=== PATIENT | female | born 1985 | race Caucasian/White ===

== ENCOUNTER 2024-10-31 16:21 | Inpatient (IN) | payer OTHER ==
[~2024-10-31] VITALS: Ht 167.6 cm; Wt 66.8 kg
[2024-10-31] MEDS ORDERED: BISACODYL 10 MG RECTAL RECTAL SUPPOSITORY PR PRN (19:15)
[2024-10-31 19:17] LABS: BASOPHILS % (AUTO) 0.4 % (0.0-2.0); EOSINOPHILS % (AUTO) 0.2 % (1.0-6.0); HEMOGLOBIN 13.6 g/dL (12.0-16.0); LYMPHOCYTES # (AUTO) 1.8 K/uL (1.0-4.8); MEAN CORPUSCULAR HEMOGLOBIN 28.5 pg (26.0-34.0); MEAN CORPUSCULAR VOLUME 84 fL (80-100); MONOCYTES # (AUTO) 0.3 K/uL (0.1-1.0); MONOCYTES % (AUTO) 4.6 % (2.0-9.0); NEUTROPHILS # (AUTO) 4.6 K/uL (1.8-7.7); NEUTROPHILS % (AUTO) 67.8 % (40.0-70.0); PLATELET COUNT (AUTO) 279 K/uL (150-450); RED BLOOD CELL COUNT(AUTO) 4.76 MIL/uL (4.00-5.20); RED CELL DISTRIBUTION WIDTH 12.8 % (11.5-14.5); WHITE BLOOD COUNT (AUTO) 6.7 K/uL (4.5-11.0)
[2024-10-31 19:27] LABS: ANION GAP 5 mmol/L (8-16); CALCIUM, TOTAL 8.7 mg/dL (8.8-10.5); CARBON DIOXIDE 27 mmol/L (22-29); CHLORIDE 104 mmol/L (98-107); CREATININE 0.86 mg/dL (0.60-1.30); GLOMERULAR FILTR. RATE CALC > 60 mL/min (>60); GLUCOSE,RANDOM 95 mg/dL (70-110); POTASSIUM 4.6 mmol/L (3.5-5.1); SODIUM SERUM 136 mmol/L (136-145); UREA NITROGEN, BLOOD 14 mg/dL (7-18)
[2024-10-31] MEDS: SODIUM CHLORIDE 0.9% 1,000 ML IV ONE (20:12)
[2024-10-31] MEDS: PANTOPRAZOLE SODIUM 40 MG/VIAL IVP SCH (20:13)
[2024-10-31] MEDS: DOCUSATE SODIUM 100 MG CAPSULE PO SCH (20:13)
[2024-10-31] MEDS: POLYETHYLENE GLYCOL 3350 17 GM PACKET PO ONE (20:43)
[2024-11-01 00:28] VITALS: BP 117/92; PULSE 66; RESP 18; TEMP 97.5; O2SAT 100
[2024-11-01] MEDS: NICOTINE 21 MG/24 HOUR PATCH TD PRN (00:29)
[2024-11-01] MEDS: MAGNESIUM HYDROXIDE SUSPENSION 30 ML UDCUP PO PRN (00:29)
[2024-11-01 05:32] VITALS: BP 118/57; PULSE 72; RESP 17; TEMP 98.2; O2SAT 99
[2024-11-01 07:29] LABS: BASOPHILS % (AUTO) 0.6 % (0.0-2.0); EOSINOPHILS % (AUTO) 0.9 % (1.0-6.0); HEMATOCRIT 41.2 % (36-46); HEMOGLOBIN 14.1 g/dL (12.0-16.0); LYMPHOCYTES # (AUTO) 2.9 K/uL (1.0-4.8); LYMPHOCYTES % (AUTO) 42.6 % (22.0-44.0); MEAN CORPUSCULAR HGB CONC 34.1 G/dL (31.0-37.0); MEAN CORPUSCULAR VOLUME 85 fL (80-100); MONOCYTES # (AUTO) 0.5 K/uL (0.1-1.0); MONOCYTES % (AUTO) 6.8 % (2.0-9.0); NEUTROPHILS # (AUTO) 3.4 K/uL (1.8-7.7); NEUTROPHILS % (AUTO) 49.1 % (40.0-70.0); RED BLOOD CELL COUNT(AUTO) 4.86 MIL/uL (4.00-5.20); RED CELL DISTRIBUTION WIDTH 12.9 % (11.5-14.5); WHITE BLOOD COUNT (AUTO) 6.9 K/uL (4.5-11.0)
[2024-11-01 07:30] LABS: ANION GAP 4 mmol/L (8-16); CALCIUM, TOTAL 8.4 mg/dL (8.8-10.5); CARBON DIOXIDE 29 mmol/L (22-29); CHLORIDE 103 mmol/L (98-107); CREATININE 0.74 mg/dL (0.60-1.30); GLOMERULAR FILTR. RATE CALC > 60 mL/min (>60); GLUCOSE,RANDOM 76 mg/dL (70-110); POTASSIUM 4.3 mmol/L (3.5-5.1); SODIUM SERUM 136 mmol/L (136-145); UREA NITROGEN, BLOOD 13 mg/dL (7-18)
[2024-11-01 08:04] VITALS: BP 117/71; PULSE 73; RESP 18; TEMP 98; O2SAT 98
[2024-11-01 08:16] LABS: PLATELET COUNT (AUTO) 223 K/uL (150-450)
[2024-11-01 12:00] VITALS: BP 116/68; PULSE 64; RESP 18; TEMP 98; O2SAT 97
[2024-11-01] MEDS: PEG 3350/NA SULF,BICARB,CL/KCL 4000 ML SOLUTION PO ONE (13:26)
[2024-11-01] MEDS: SODIUM CHLORIDE 0.9% 1,000 ML IV ONE (13:27)
[2024-11-01] MEDS: LACTULOSE 20 GM/30 ML SOLUTION UDCUP PO SCH (16:00)
[2024-11-01 20:42] VITALS: BP 125/71; PULSE 81; RESP 17; TEMP 98.2; O2SAT 99
[2024-11-02 00:43] VITALS: BP 126/84; PULSE 89; RESP 20; TEMP 97.9; O2SAT 98
[2024-11-02 03:58] LABS: ALCOHOL, URINE DRUG SCREEN NEGATIVE (NEGATIVE); AMPHET/METH SCREEN,URINE POSITIVE (NEGATIVE); BARBITURATE SCREEN, URINE NEGATIVE (NEGATIVE); BENZODIAZEPINES SCREEN,URINE NEGATIVE (NEGATIVE); CANNABINOID SCREEN,URINE NEGATIVE (NEGATIVE); COCAINE SCREEN,URINE NEGATIVE (NEGATIVE); METHADONE SCREEN, URINE NEGATIVE (NEGATIVE); OPIATE SCREEN,URINE NEGATIVE (NEGATIVE); PHENCYCLIDINE SCREEN,URINE NEGATIVE (NEGATIVE)
[2024-11-02 05:00] VITALS: BP 129/77; PULSE 76; RESP 17; TEMP 97.9; O2SAT 98
[2024-11-02 06:33] LABS: BASOPHILS % (AUTO) 0.3 % (0.0-2.0); EOSINOPHILS % (AUTO) 0.6 % (1.0-6.0); HEMATOCRIT 38.5 % (36-46); HEMOGLOBIN 13.3 g/dL (12.0-16.0); LYMPHOCYTES # (AUTO) 1.8 K/uL (1.0-4.8); LYMPHOCYTES % (AUTO) 25.4 % (22.0-44.0); MEAN CORPUSCULAR HEMOGLOBIN 28.8 pg (26.0-34.0); MEAN CORPUSCULAR HGB CONC 34.4 G/dL (31.0-37.0); MEAN CORPUSCULAR VOLUME 84 fL (80-100); MONOCYTES # (AUTO) 0.5 K/uL (0.1-1.0); MONOCYTES % (AUTO) 6.9 % (2.0-9.0); NEUTROPHILS # (AUTO) 4.6 K/uL (1.8-7.7); NEUTROPHILS % (AUTO) 66.8 % (40.0-70.0); PLATELET COUNT (AUTO) 234 K/uL (150-450); RED BLOOD CELL COUNT(AUTO) 4.61 MIL/uL (4.00-5.20); RED CELL DISTRIBUTION WIDTH 12.4 % (11.5-14.5); WHITE BLOOD COUNT (AUTO) 6.9 K/uL (4.5-11.0)
[2024-11-02 06:34] LABS: ANION GAP 5 mmol/L (8-16); CALCIUM, TOTAL 8.3 mg/dL (8.8-10.5); CARBON DIOXIDE 32 mmol/L (22-29); CHLORIDE 101 mmol/L (98-107); CREATININE 0.68 mg/dL (0.60-1.30); GLOMERULAR FILTR. RATE CALC > 60 mL/min (>60); GLUCOSE,RANDOM 84 mg/dL (70-110); POTASSIUM 3.7 mmol/L (3.5-5.1); SODIUM SERUM 138 mmol/L (136-145); UREA NITROGEN, BLOOD 11 mg/dL (7-18)
[2024-11-02 07:55] VITALS: BP 125/88; PULSE 82; RESP 18; TEMP 98.2; O2SAT 99
[2024-11-02 11:00] VITALS: BP 124/70; PULSE 74; RESP 18; TEMP 98.6; O2SAT 96
[2024-11-02 15:27] VITALS: BP 112/77; PULSE 77; RESP 19; TEMP 98.1; O2SAT 98
[2024-11-02 19:46] VITALS: BP 122/75; PULSE 78; RESP 18; TEMP 98.6; O2SAT 99
[2024-11-03 00:29] VITALS: BP 132/83; PULSE 80; RESP 18; TEMP 98.4; O2SAT 98
[2024-11-03 05:48] VITALS: BP_SYST 106; PULSE 73; RESP 18; TEMP 98.4; O2SAT 98
[2024-11-03 08:11] VITALS: BP 116/67; PULSE 68; RESP 19; TEMP 98.2; O2SAT 96
[2024-11-03 12:00] VITALS: BP 136/73; PULSE 81; RESP 19; TEMP 98.2; O2SAT 97
[2024-11-03] MEDS: ONDANSETRON HCL 4 MG/2 ML VIAL IVP PRN (14:27)
[2024-11-03 19:55] VITALS: BP 113/70; PULSE 77; RESP 18; TEMP 98.2; O2SAT 100
[2024-11-04 04:30] VITALS: BP 111/59; PULSE 78; RESP 18; TEMP 98.2; O2SAT 99
[2024-11-04 09:30] VITALS: BP 119/72; PULSE 90; RESP 20; TEMP 98.2; O2SAT 98
[2024-11-04 20:15] VITALS: BP 111/71; PULSE 87; RESP 18; TEMP 98.2; O2SAT 99
[2024-11-05 04:20] VITALS: BP 107/68; PULSE 77; RESP 18; TEMP 98.1; O2SAT 100
[2024-11-05 08:14] VITALS: BP 119/74; PULSE 84; RESP 18; TEMP 98.3; O2SAT 100
[2024-11-05] MEDS: PEG 3350/NA SULF,BICARB,CL/KCL 4000 ML SOLUTION PO ONE (08:18)
[2024-11-05 15:43] VITALS: BP 106/72; PULSE 75; RESP 18; TEMP 98.2; O2SAT 100
[2024-11-05] MEDS: ACETAMINOPHEN 325 MG TABLET PO PRN (17:55)
[2024-11-05 19:27] VITALS: BP 102/66; PULSE 80; RESP 18; TEMP 98.6; O2SAT 96
[2024-11-05] MEDS: DiphenhydrAMINE HCL 25 MG CAPSULE PO ONE (20:27)
[2024-11-05] MEDS: ZOLPIDEM TARTRATE 5 MG TABLET PO PRN (22:34)
[2024-11-06 05:01] VITALS: BP 119/79; PULSE 81; RESP 18; TEMP 98.1; O2SAT 99
[2024-11-06 08:00] VITALS: BP 114/89; PULSE 90; RESP 18; TEMP 97.9; O2SAT 100
[2024-11-06] MEDS ORDERED: SODIUM CHLORIDE 0.9% 1,000 ML ONE (10:04)
[2024-11-06] MEDS: SODIUM CHLORIDE 0.9% 1,000 ML IV ONE (11:00)
[2024-11-06 13:59] LABS: ANION GAP 9 mmol/L (8-16); CALCIUM, TOTAL 9.1 mg/dL (8.8-10.5); CARBON DIOXIDE 24 mmol/L (22-29); CHLORIDE 103 mmol/L (98-107); CREATININE 0.66 mg/dL (0.60-1.30); GLOMERULAR FILTR. RATE CALC > 60 mL/min (>60); GLUCOSE,RANDOM 118 mg/dL (70-110); POTASSIUM 3.9 mmol/L (3.5-5.1); SODIUM SERUM 136 mmol/L (136-145); UREA NITROGEN, BLOOD 8 mg/dL (7-18)
[2024-11-06] MEDS ORDERED: MAGN-169 PO (15:17)
[2024-11-06] MEDS ORDERED: ACET650S24 PR (15:17)
[2024-11-06 20:58] VITALS: BP 105/66; PULSE 88; RESP 18; TEMP 98.2; O2SAT 100
[2024-11-07 05:30] VITALS: BP 109/68; PULSE 85; RESP 18; TEMP 97.9; O2SAT 100
[2024-11-07] MEDS ORDERED: ACET-2247 PO (12:21)
[2024-11-08] MEDS ORDERED: FAMO20 PO (10:03)
[2024-11-08] MEDS ORDERED: NICO-803 TD (10:03)
[2024-11-08] MEDS ORDERED: LOPE-232 PO (10:04)
== END 2024-11-07 04:00 | DRG 395 ==
LOC: EMS 16:21 → EDSEX 16:21 → EDH 19:05 → 6S 21:37 → 5S 21:54 → 6S 11-03 13:41
PROVIDERS: ADMIT Internal Medicine; ATTEND Internal Medicine
PROC: 0DJD8ZZ Inspection of Lower Intestinal Tract, Via Natural or Artificial Opening Endoscopic (ICD-10-PCS; principal; 2024-11-06 12:00)
DX: T18.4XXA Foreign body in colon, initial encounter (principal); K59.00 Constipation, unspecified; F17.210 Nicotine dependence, cigarettes, uncomplicated; Z88.5 Allergy status to narcotic agent; Z79.899 Other long term (current) drug therapy; W44.8XXA Other foreign body entering into or through a natural orifice, initial encounter; Y93.89 Activity, other specified; Y92.89 Other specified places as the place of occurrence of the external cause; Y99.8 Other external cause status
CPT/HCPCS: 74018; 74019; 74176; 80048; 80307; 84703; 85025; 99285; J2405; J2470; J7030; 36415-L1; 36415-TC

== ENCOUNTER 2024-11-07 10:22 | Inpatient (IN) | payer OTHER ==
[~2024-11-07] VITALS: Ht 175.3 cm; Wt 64.0 kg
[~2024-11-07 10:22] MED LIST: ACET650S24 PR; MAGN-169 PO
[2024-11-07] MEDS: HydrOXYzine PAMOATE 50 MG CAPSULE PO ONE (11:16)
[2024-11-07 11:24] LABS: BASOPHILS % (AUTO) 0.6 % (0.0-2.0); EOSINOPHILS % (AUTO) 0.2 % (1.0-6.0); HEMATOCRIT 48.7 % (36-46); HEMOGLOBIN 16.6 g/dL (12.0-16.0); LYMPHOCYTES # (AUTO) 1.7 K/uL (1.0-4.8); LYMPHOCYTES % (AUTO) 19.8 % (22.0-44.0); MEAN CORPUSCULAR HEMOGLOBIN 28.1 pg (26.0-34.0); MEAN CORPUSCULAR VOLUME 83 fL (80-100); MONOCYTES # (AUTO) 0.5 K/uL (0.1-1.0); MONOCYTES % (AUTO) 6.1 % (2.0-9.0); NEUTROPHILS # (AUTO) 6.2 K/uL (1.8-7.7); NEUTROPHILS % (AUTO) 73.3 % (40.0-70.0); PLATELET COUNT (AUTO) 374 K/uL (150-450); RED BLOOD CELL COUNT(AUTO) 5.89 MIL/uL (4.00-5.20); RED CELL DISTRIBUTION WIDTH 12.6 % (11.5-14.5); WHITE BLOOD COUNT (AUTO) 8.4 K/uL (4.5-11.0)
[2024-11-07 11:57] LABS: ALCOHOL, BLOOD (SERUM) < 3 mg/dL (0-10)
[2024-11-07 11:58] LABS: ANION GAP 9 mmol/L (8-16); CALCIUM, TOTAL 9.7 mg/dL (8.8-10.5); CARBON DIOXIDE 25 mmol/L (22-29); CHLORIDE 101 mmol/L (98-107); CREATININE 0.94 mg/dL (0.60-1.30); GLOMERULAR FILTR. RATE CALC > 60 mL/min (>60); GLUCOSE,RANDOM 115 mg/dL (70-110); POTASSIUM 3.3 mmol/L (3.5-5.1); SODIUM SERUM 135 mmol/L (136-145); UREA NITROGEN, BLOOD 11 mg/dL (7-18)
[2024-11-07 12:03] LABS: TROPONIN I-HIGH SENSITIVITY 4 ng/L (<51)
[2024-11-07] MEDS ORDERED: ONDANSETRON HCL 4 MG/2 ML VIAL IVP PRN (12:15)
[2024-11-07] MEDS ORDERED: MAGNESIUM HYDROXIDE SUSPENSION 30 ML UDCUP PO PRN (12:15)
[2024-11-07] MEDS ORDERED: POTASSIUM CHL 10 MEQ/WATER 50 ML IV PRN (12:15)
[2024-11-07] MEDS ORDERED: ACETAMINOPHEN 325 MG TABLET PO PRN (12:15)
[2024-11-07] MEDS ORDERED: ACET-2247 PO (12:21)
[2024-11-07 13:08] LABS: ALANINE AMINOTRANSFERASE 28 U/L (12-78); ALBUMIN 4.3 g/dL (3.4-5.0); ALKALINE PHOSPHATASE 90 U/L (46-116); ASPARTATE AMINOTRANSFERASE 18 U/L (15-37); BILIRUBIN,TOTAL 0.4 mg/dL (0.1-1.0); CREATINE KINASE, TOTAL ONLY 80 U/L (26-192); HCG,QUANTITATIVE < 1 mIU/mL (0-6); TOTAL PROTEIN, SERUM 8.6 g/dL (6.4-8.2)
[2024-11-07] MEDS: SODIUM CHLORIDE 0.9% 1,000 ML IV ONE (13:08)
[2024-11-07 13:16] LABS: ALCOHOL, URINE DRUG SCREEN NEGATIVE (NEGATIVE); AMPHET/METH SCREEN,URINE NEGATIVE (NEGATIVE); BARBITURATE SCREEN, URINE NEGATIVE (NEGATIVE); BENZODIAZEPINES SCREEN,URINE NEGATIVE (NEGATIVE); CANNABINOID SCREEN,URINE NEGATIVE (NEGATIVE); COCAINE SCREEN,URINE NEGATIVE (NEGATIVE); METHADONE SCREEN, URINE NEGATIVE (NEGATIVE); OPIATE SCREEN,URINE NEGATIVE (NEGATIVE); PHENCYCLIDINE SCREEN,URINE NEGATIVE (NEGATIVE)
[2024-11-07] MEDS: POTASSIUM CHLORIDE 20 MEQ ER TABLET PO PRN (16:31)
[2024-11-07 18:00] VITALS: BP 110/72; PULSE 75; RESP 18; TEMP 97.8; O2SAT 100
[2024-11-07 18:31] LABS: APPEARANCE,URINE CLEAR (CLEAR); BILIRUBIN,URINE NEGATIVE (NEGATIVE); COLOR,URINE YELLOW (YELLOW); GLUCOSE, URINE (UA) TRACE mg/dL (NEGATIVE); LEUKOCYTE ESTERASE ,URINE TRACE (NEGATIVE); NITRATE,URINE NEGATIVE (NEGATIVE); OCCULT BLOOD,URINE TRACE (NEGATIVE); PROTEIN,URINE 30-70 mg/dL (NEGATIVE); SPECIFIC GRAVITIY, URINE 1.033 (1.003-1.030); UROBILINOGEN,URINE <=1.0 mg/dL (<=1.0)
[2024-11-07 18:46] LABS: BACTERIA,URINE Few /HPF (None Seen); SQUAMOUS EPITHELIAL CELL,UR Few /LPF (None Seen)
[2024-11-07] MEDS: LOPERAMIDE HCL 2 MG CAPSULE PO ONE (19:48)
[2024-11-07 19:52] VITALS: BP 117/76; PULSE 74; RESP 17; TEMP 97.9; O2SAT 100
[2024-11-07] MEDS: ZOLPIDEM TARTRATE 5 MG TABLET PO PRN (21:22)
[2024-11-07] MEDS: DiphenhydrAMINE HCL 25 MG CAPSULE PO PRN (22:35)
[2024-11-08 04:47] VITALS: BP 110/71; PULSE 76; RESP 17; TEMP 98.4; O2SAT 100
[2024-11-08] MEDS: NICOTINE 21 MG/24 HOUR PATCH TD SCH (08:26)
[2024-11-08] MEDS: FAMOTIDINE 20 MG TABLET PO SCH (08:27)
[2024-11-08 08:33] VITALS: BP 112/79; PULSE 70; RESP 20; TEMP 97.9; O2SAT 98
[2024-11-08] MEDS ORDERED: NICO-803 TD (10:03)
[2024-11-08] MEDS ORDERED: FAMO20 PO (10:03)
[2024-11-08] MEDS ORDERED: LOPE-232 PO (10:04)
[2024-11-08] MEDS: LOPERAMIDE HCL 2 MG CAPSULE PO PRN (18:58)
[2024-11-08 21:32] VITALS: BP 103/69; PULSE 81; RESP 17; TEMP 97.8; O2SAT 100
== END 2024-11-09 08:11 | DRG 641 ==
LOC: EMS 10:24 → EDH 12:13 → 6S 16:57
PROVIDERS: ADMIT Internal Medicine; ATTEND Internal Medicine
DX: E87.6 Hypokalemia (principal); F15.13 Other stimulant abuse with withdrawal; F11.13 Opioid abuse with withdrawal; F17.210 Nicotine dependence, cigarettes, uncomplicated; F41.9 Anxiety disorder, unspecified; Z88.5 Allergy status to narcotic agent; Z79.899 Other long term (current) drug therapy
CPT/HCPCS: 71045; 80048; 80076; 80307; 81001; 82550; 84132; 84484; 84702; 85025; 93005; 99285; G0480; 36415-L1; 36415-TC

== ENCOUNTER 2024-11-12 17:19 | Inpatient (IN) | payer OTHER ==
[~2024-11-12] VITALS: Ht 175.3 cm; Wt 66.2 kg
[~2024-11-12 17:19] MED LIST changes: +ACET-2247 PO; -ACET650S24 PR; +FAMO20 PO; +LOPE-232 PO; +NICO-803 TD
[2024-11-12 20:42] LABS: BASOPHILS % (AUTO) 0.4 % (0.0-2.0); EOSINOPHILS % (AUTO) 0.5 % (1.0-6.0); HEMATOCRIT 39.8 % (36-46); HEMOGLOBIN 14.1 g/dL (12.0-16.0); LYMPHOCYTES # (AUTO) 3.2 K/uL (1.0-4.8); LYMPHOCYTES % (AUTO) 33.8 % (22.0-44.0); MEAN CORPUSCULAR HEMOGLOBIN 29.1 pg (26.0-34.0); MEAN CORPUSCULAR HGB CONC 35.5 G/dL (31.0-37.0); MEAN CORPUSCULAR VOLUME 82 fL (80-100); MONOCYTES # (AUTO) 0.6 K/uL (0.1-1.0); MONOCYTES % (AUTO) 6.3 % (2.0-9.0); NEUTROPHILS # (AUTO) 5.5 K/uL (1.8-7.7); PLATELET COUNT (AUTO) 392 K/uL (150-450); RED BLOOD CELL COUNT(AUTO) 4.84 MIL/uL (4.00-5.20); RED CELL DISTRIBUTION WIDTH 12.4 % (11.5-14.5); WHITE BLOOD COUNT (AUTO) 9.3 K/uL (4.5-11.0)
[2024-11-12 20:48] LABS: ANION GAP 8 mmol/L (8-16); CALCIUM, TOTAL 9.2 mg/dL (8.8-10.5); CARBON DIOXIDE 26 mmol/L (22-29); CHLORIDE 105 mmol/L (98-107); CREATININE 0.74 mg/dL (0.60-1.30); GLOMERULAR FILTR. RATE CALC > 60 mL/min (>60); GLUCOSE,RANDOM 111 mg/dL (70-110); POTASSIUM 3.8 mmol/L (3.5-5.1); SODIUM SERUM 139 mmol/L (136-145); UREA NITROGEN, BLOOD 13 mg/dL (7-18)
[2024-11-12] MEDS ORDERED: ONDANSETRON HCL 4 MG/2 ML VIAL IVP PRN (21:00)
[2024-11-12] MEDS ORDERED: ACETAMINOPHEN 325 MG TABLET PO PRN (21:00)
[2024-11-12] MEDS ORDERED: KETOROLAC TROMETHAMINE 15 MG/ML VIAL IVP PRN (21:00)
[2024-11-12 21:37] VITALS: BP 107/68; PULSE 89; RESP 20; TEMP 98.2; O2SAT 100
[2024-11-12] MEDS: MELATONIN 5 MG TABLET PO SCH (21:37)
[2024-11-12] MEDS: HEPARIN SODIUM,PORCINE 5,000 UNITS/ML VIAL SQ SCH (23:58)
[2024-11-13 04:14] VITALS: BP 103/66; PULSE 68; RESP 18; TEMP 97.9; O2SAT 99
[2024-11-13 07:34] VITALS: BP 120/73; PULSE 59; RESP 19; TEMP 97.9; O2SAT 98
[2024-11-13] MEDS: HydrOXYzine PAMOATE 25 MG CAPSULE PO PRN (08:11)
[2024-11-13 09:33] LABS: BASOPHILS % (AUTO) 0.5 % (0.0-2.0); EOSINOPHILS % (AUTO) 0.9 % (1.0-6.0); HEMATOCRIT 38.4 % (36-46); HEMOGLOBIN 13.4 g/dL (12.0-16.0); LYMPHOCYTES % (AUTO) 34.8 % (22.0-44.0); MEAN CORPUSCULAR HEMOGLOBIN 28.8 pg (26.0-34.0); MEAN CORPUSCULAR HGB CONC 34.9 G/dL (31.0-37.0); MEAN CORPUSCULAR VOLUME 82 fL (80-100); MONOCYTES # (AUTO) 0.4 K/uL (0.1-1.0); MONOCYTES % (AUTO) 4.5 % (2.0-9.0); NEUTROPHILS # (AUTO) 5.1 K/uL (1.8-7.7); NEUTROPHILS % (AUTO) 59.3 % (40.0-70.0); PLATELET COUNT (AUTO) 352 K/uL (150-450); RED BLOOD CELL COUNT(AUTO) 4.66 MIL/uL (4.00-5.20); RED CELL DISTRIBUTION WIDTH 12.4 % (11.5-14.5); WHITE BLOOD COUNT (AUTO) 8.6 K/uL (4.5-11.0)
[2024-11-13 09:44] LABS: ANION GAP 8 mmol/L (8-16); CALCIUM, TOTAL 8.5 mg/dL (8.8-10.5); CARBON DIOXIDE 26 mmol/L (22-29); CHLORIDE 103 mmol/L (98-107); CREATININE 0.89 mg/dL (0.60-1.30); GLOMERULAR FILTR. RATE CALC > 60 mL/min (>60); GLUCOSE,RANDOM 153 mg/dL (70-110); POTASSIUM 3.4 mmol/L (3.5-5.1); SODIUM SERUM 137 mmol/L (136-145); UREA NITROGEN, BLOOD 10 mg/dL (7-18)
[2024-11-13 16:34] VITALS: BP 110/70; PULSE 77; RESP 18; TEMP 98.4; O2SAT 98
[2024-11-13 17:35] LABS: AMPHET/METH SCREEN,URINE NEGATIVE (NEGATIVE); BARBITURATE SCREEN, URINE NEGATIVE (NEGATIVE); BENZODIAZEPINES SCREEN,URINE NEGATIVE (NEGATIVE); CANNABINOID SCREEN,URINE NEGATIVE (NEGATIVE); COCAINE SCREEN,URINE NEGATIVE (NEGATIVE); METHADONE SCREEN, URINE NEGATIVE (NEGATIVE); OPIATE SCREEN,URINE NEGATIVE (NEGATIVE); PHENCYCLIDINE SCREEN,URINE NEGATIVE (NEGATIVE)
[2024-11-13 17:37] LABS: ALCOHOL, URINE DRUG SCREEN NEGATIVE (NEGATIVE)
[2024-11-13 19:45] VITALS: BP 104/61; PULSE 92; RESP 18; TEMP 99; O2SAT 98
[2024-11-13] MEDS ORDERED: POTASSIUM CHL 10 MEQ/WATER 50 ML IV PRN (20:45)
[2024-11-13] MEDS: POTASSIUM CHLORIDE 20 MEQ ER TABLET PO PRN (20:59)
[2024-11-14 05:00] VITALS: BP 102/68; PULSE 56; RESP 18; TEMP 97.5; O2SAT 98
[2024-11-14 07:56] VITALS: BP 119/84; PULSE 70; RESP 20; TEMP 97.5; O2SAT 100
[2024-11-14 19:57] VITALS: BP 107/67; PULSE 79; RESP 19; TEMP 98.4; O2SAT 96
[2024-11-15 08:21] VITALS: BP 124/93; PULSE 56; RESP 18; TEMP 98.7; O2SAT 98
[2024-11-15] MEDS ORDERED: MELA5TAB40 PO (12:02)
[2024-11-15 20:28] VITALS: BP 115/88; PULSE 102; RESP 20; O2SAT 98
[2024-11-16 02:01] LABS: GLUCOMETER DEV NAME(LOC) 6S.1D; GLUCOSE,POINT OF CARE 243 MG/DL (70-110)
== END 2024-11-15 21:56 | DRG 897 ==
LOC: EMS 17:19 → EDH 20:30 → 6S 21:22
PROVIDERS: ADMIT Internal Medicine; ATTEND Internal Medicine
DX: F11.13 Opioid abuse with withdrawal (principal); E87.6 Hypokalemia; G47.00 Insomnia, unspecified; F15.10 Other stimulant abuse, uncomplicated; F17.210 Nicotine dependence, cigarettes, uncomplicated; F41.9 Anxiety disorder, unspecified; Z76.5 Malingerer [conscious simulation]; Z88.5 Allergy status to narcotic agent; Z91.199 Patient's noncompliance with other medical treatment and regimen due to unspecified reason; Z71.51 Drug abuse counseling and surveillance of drug abuser
CPT/HCPCS: 80048; 80307; 82962; 83735; 84132; 84703; 85025; 99285; J1644; J1885